=== PATIENT | female | born 1965 | race African-American/Black ===

== ENCOUNTER 2019-07-15 17:38 | Emergency (ER) | payer MEDICAID, OTHER ==
[~2019-07-15] VITALS: Ht 170.2 cm; Wt 77.3 kg
[~2019-07-15 17:38] MED LIST: ARIP10TA8 PO; DOXY100C PO; DSS100 PO; MICO200S VG; OMEP20 PO; PHEN-846 PO; SERT50TA12 PO
[2019-07-15 17:43] VITALS: BP 137/83
== END 2019-07-15 18:50 | disposition left against medical advice (07) ==
LOC: EMS 17:42
DX: R06.02 Shortness of breath (principal); Z53.21 Procedure and treatment not carried out due to patient leaving prior to being seen by health care provider

== ENCOUNTER 2024-07-15 18:16 | Inpatient (IN) | payer MEDICAID, OTHER ==
[~2024-07-15] VITALS: Ht 167.6 cm; Wt 83.9 kg
[~2024-07-15 18:16] MED LIST changes: +ARIP10TA38 PO; -ARIP10TA8 PO; +SERT-158 PO; -SERT50TA12 PO
[2024-07-15 19:54] LABS: BASOPHILS % (AUTO) 0.9 % (0.0-2.0); EOSINOPHILS % (AUTO) 1.7 % (1.0-6.0); HEMATOCRIT 42.3 % (36-46); HEMOGLOBIN 13.9 g/dL (12.0-16.0); LYMPHOCYTES # (AUTO) 2.1 K/uL (1.0-4.8); LYMPHOCYTES % (AUTO) 25.8 % (22.0-44.0); MEAN CORPUSCULAR HEMOGLOBIN 31.9 pg (26.0-34.0); MEAN CORPUSCULAR HGB CONC 32.9 G/dL (31.0-37.0); MEAN CORPUSCULAR VOLUME 97 fL (80-100); MONOCYTES # (AUTO) 0.5 K/uL (0.1-1.0); NEUTROPHILS # (AUTO) 5.5 K/uL (1.8-7.7); NEUTROPHILS % (AUTO) 65.6 % (40.0-70.0); PLATELET COUNT (AUTO) 257 K/uL (150-450); RED BLOOD CELL COUNT(AUTO) 4.36 MIL/uL (4.00-5.20); RED CELL DISTRIBUTION WIDTH 15.6 % (11.5-14.5); WHITE BLOOD COUNT (AUTO) 8.3 K/uL (4.5-11.0)
[2024-07-15 20:07] LABS: ANION GAP 7 mmol/L (8-16); CALCIUM, TOTAL 9.3 mg/dL (8.8-10.5); CARBON DIOXIDE 28 mmol/L (22-29); CHLORIDE 106 mmol/L (98-107); CREATININE 0.73 mg/dL (0.60-1.30); GLOMERULAR FILTR. RATE CALC > 60 mL/min (>60); GLUCOSE,RANDOM 97 mg/dL (70-110); POTASSIUM 3.6 mmol/L (3.5-5.1); SODIUM SERUM 141 mmol/L (136-145); UREA NITROGEN, BLOOD 10 mg/dL (7-18)
[2024-07-15 20:11] LABS: B-TYPE NATRIURETIC PEPTIDE 24 pg/mL (0-100)
[2024-07-15 20:13] LABS: TROPONIN I-HIGH SENSITIVITY 5 ng/L (<51)
[2024-07-15 20:32] LABS: ALANINE AMINOTRANSFERASE 20 U/L (12-78); ALBUMIN 3.2 g/dL (3.4-5.0); ALKALINE PHOSPHATASE 84 U/L (46-116); ASPARTATE AMINOTRANSFERASE 19 U/L (15-37); BILIRUBIN,TOTAL 0.4 mg/dL (0.1-1.0); CREATINE KINASE, TOTAL ONLY 100 U/L (26-192); TOTAL PROTEIN, SERUM 6.6 g/dL (6.4-8.2)
[2024-07-15] MEDS: MethylPREDNISolone SOD SUCC 125 MG/2 ML VIAL IVP ONE (21:06)
[2024-07-15 21:15] LABS: COVID AG,FIA SOURCE NASAL SWAB
[2024-07-15] MEDS ORDERED: BENZONATATE 100 MG CAPSULE PO PRN (21:30)
[2024-07-15] MEDS ORDERED: MAGNESIUM HYDROXIDE SUSPENSION 30 ML UDCUP PO PRN (21:30)
[2024-07-15] MEDS ORDERED: ALBUTEROL SULFATE 2.5 MG/0.5 ML NEB SOLUTION NEB PRN (21:30)
[2024-07-15] MEDS ORDERED: ACETAMINOPHEN 325 MG TABLET PO PRN (21:30)
[2024-07-15 21:36] LABS: INFLUENZA TYPE A NEGATIVE FOR TYPE A (NEGATIVE); INFLUENZA TYPE B NEGATIVE FOR TYPE B (NEGATIVE); SARS-COV2 (COVID) ANTIGEN,FIA Negative (Negative)
[2024-07-15] MEDS: HEPARIN SODIUM,PORCINE 5,000 UNITS/ML VIAL SQ SCH (23:06)
[2024-07-16 00:20] VITALS: BP 130/71; PULSE 72; RESP 20; TEMP 97.8; O2SAT 97
[2024-07-16 04:55] VITALS: BP 114/87; PULSE 67; RESP 18; TEMP 97.8; O2SAT 99
[2024-07-16] MEDS: MethylPREDNISolone SOD SUCC 125 MG/2 ML VIAL IVP SCH (05:41)
[2024-07-16 06:25] LABS: APPEARANCE,URINE CLEAR (CLEAR); BILIRUBIN,URINE NEGATIVE (NEGATIVE); COLOR,URINE LIGHT YELLOW (YELLOW); GLUCOSE, URINE (UA) TRACE mg/dL (NEGATIVE); LEUKOCYTE ESTERASE ,URINE LARGE (NEGATIVE); NITRATE,URINE NEGATIVE (NEGATIVE); OCCULT BLOOD,URINE NEGATIVE (NEGATIVE); PROTEIN,URINE NEGATIVE (NEGATIVE); SPECIFIC GRAVITIY, URINE 1.012 (1.003-1.030)
[2024-07-16 06:44] LABS: ALCOHOL, URINE DRUG SCREEN NEGATIVE (NEGATIVE); AMPHET/METH SCREEN,URINE NEGATIVE (NEGATIVE); BARBITURATE SCREEN, URINE NEGATIVE (NEGATIVE); BENZODIAZEPINES SCREEN,URINE NEGATIVE (NEGATIVE); CANNABINOID SCREEN,URINE NEGATIVE (NEGATIVE); COCAINE SCREEN,URINE POSITIVE (NEGATIVE); METHADONE SCREEN, URINE NEGATIVE (NEGATIVE); OPIATE SCREEN,URINE NEGATIVE (NEGATIVE); PHENCYCLIDINE SCREEN,URINE NEGATIVE (NEGATIVE)
[2024-07-16 07:15] LABS: BACTERIA,URINE None Seen /HPF (None Seen); RBC,URINE 0-2 /HPF (0-2); SQUAMOUS EPITHELIAL CELL,UR Few /LPF (None Seen)
[2024-07-16 08:08] VITALS: BP 120/66; PULSE 74; RESP 17; TEMP 97.9; O2SAT 98
[2024-07-16] MEDS: FAMOTIDINE 20 MG TABLET PO SCH (08:19)
[2024-07-16] MEDS ORDERED: CIPR250T6 PO (10:17)
[2024-07-16] MEDS ORDERED: ALBU18HF12 IH (10:18)
[2024-07-16] MEDS ORDERED: METR500 PO (10:33)
[2024-07-16] MEDS: CefTRIAXone 1 GM/DEXTROSE 50 ML IV ONE (11:24)
[2024-07-16] MEDS ORDERED: ACET-3385 PO (21:17)
[2024-07-16] MEDS ORDERED: CEPH-558 PO (21:17)
== END 2024-07-16 15:20 | disposition home or self-care (01) | DRG 140 ==
LOC: EMS 18:16 → EDH 21:27 → 6S 07-16 00:27
PROVIDERS: ADMIT Internal Medicine; ATTEND Internal Medicine
DX: J44.1 Chronic obstructive pulmonary disease with (acute) exacerbation (principal); A59.9 Trichomoniasis, unspecified; E78.5 Hyperlipidemia, unspecified; F14.90 Cocaine use, unspecified, uncomplicated; F17.200 Nicotine dependence, unspecified, uncomplicated; Z20.822 Contact with and (suspected) exposure to COVID-19; N39.0 Urinary tract infection, site not specified; K21.9 Gastro-esophageal reflux disease without esophagitis; J98.11 Atelectasis; R32 Unspecified urinary incontinence; F32.A Depression, unspecified
CPT/HCPCS: 71045; 80048; 80076; 80307; 81001; 82550; 83880; 84484; 85025; 87804; 93005; 99285; G0378; G0480; J0696; J1644; J2919; 36415-L1; 36415-TC

== ENCOUNTER 2024-07-16 15:12 | Emergency (ER) | payer OTHER ==
[~2024-07-16] VITALS: Ht 167.6 cm; Wt 84.0 kg
[~2024-07-16 15:12] MED LIST changes: +ALBU18HF12 IH; +CIPR250T6 PO; +METR500 PO
[2024-07-16 15:26] VITALS: TEMP 98.5
[2024-07-16] MEDS ORDERED: IOHEXOL 350 MG/ML 100 ML VIAL ONE (16:27)
[2024-07-16] MEDS ORDERED: SODIUM CHLORIDE 0.9% 100 ML ONE (16:27)
[2024-07-16 17:09] LABS: BASOPHILS % (AUTO) 0.4 % (0.0-2.0); EOSINOPHILS % (AUTO) 0.2 % (1.0-6.0); HEMATOCRIT 46.6 % (36-46); LYMPHOCYTES # (AUTO) 1.7 K/uL (1.0-4.8); LYMPHOCYTES % (AUTO) 15.7 % (22.0-44.0); MEAN CORPUSCULAR HEMOGLOBIN 31.3 pg (26.0-34.0); MEAN CORPUSCULAR HGB CONC 32.3 G/dL (31.0-37.0); MEAN CORPUSCULAR VOLUME 97 fL (80-100); MONOCYTES # (AUTO) 0.6 K/uL (0.1-1.0); MONOCYTES % (AUTO) 5.4 % (2.0-9.0); NEUTROPHILS # (AUTO) 8.5 K/uL (1.8-7.7); NEUTROPHILS % (AUTO) 78.3 % (40.0-70.0); PLATELET COUNT (AUTO) 307 K/uL (150-450); RED BLOOD CELL COUNT(AUTO) 4.81 MIL/uL (4.00-5.20); RED CELL DISTRIBUTION WIDTH 15.7 % (11.5-14.5); WHITE BLOOD COUNT (AUTO) 10.9 K/uL (4.5-11.0)
[2024-07-16 17:19] LABS: CALCIUM, TOTAL 9.9 mg/dL (8.8-10.5); CREATININE 1.14 mg/dL (0.60-1.30); POTASSIUM 3.4 mmol/L (3.5-5.1)
[2024-07-16 17:25] LABS: ALBUMIN 3.8 g/dL (3.4-5.0); BILIRUBIN,DIRECT 0.1 mg/dL (0.00-0.20); BILIRUBIN,TOTAL 0.2 mg/dL (0.1-1.0); TOTAL PROTEIN, SERUM 7.8 g/dL (6.4-8.2)
[2024-07-16] MEDS: KETOROLAC TROMETHAMINE 30 MG/ML VIAL IVP ONE (17:39)
[2024-07-16] MEDS: ACETAMINOPHEN 500 MG TABLET PO ONE (17:39)
[2024-07-16] MEDS: MetroNIDAZOLE 500 MG TABLET PO ONE (19:09)
[2024-07-16] MEDS ORDERED: ACET-3385 PO (21:17)
[2024-07-16] MEDS ORDERED: CEPH-558 PO (21:17)
[2024-07-16 22:30] VITALS: BP 126/75; PULSE 71; RESP 17; O2SAT 98
[2024-07-17 06:06] LABS: HIV 1-2 SCREEN 4TH GEN W/RFLX Non Reactive (Non Reactive)
== END 2024-07-16 22:52 | disposition home or self-care (01) ==
LOC: EMS 15:12
DX: A59.9 Trichomoniasis, unspecified (principal); R10.84 Generalized abdominal pain; J44.1 Chronic obstructive pulmonary disease with (acute) exacerbation; E78.00 Pure hypercholesterolemia, unspecified; K21.9 Gastro-esophageal reflux disease without esophagitis; K57.30 Diverticulosis of large intestine without perforation or abscess without bleeding; F31.9 Bipolar disorder, unspecified; F17.210 Nicotine dependence, cigarettes, uncomplicated; F14.90 Cocaine use, unspecified, uncomplicated; Z90.721 Acquired absence of ovaries, unilateral
CPT/HCPCS: 99285; 74177; 96374; 86592; 80048; 80076; 83690; 85025; 87210; 36415; 87491; 87591; 87389; Q9967; J1885; J7050